=== PATIENT | female | born 1960 | race African-American/Black ===

== ENCOUNTER → 2016-12-13 | Outpatient (CLI) | payer OTHER ==
[~2016-12-13] MED LIST: LORTAB 5/500 TA1 TA1 PO
--- NOTE | ~2016-12-13 | MY29 ---
[facility] A Service of [facility] RADIOLOGY TEXT RESULTS PATIENT: SILVIO BRASHER LOCATION: [facility] : 56 UNIT #: [id number] AGE: [address]: Tawanna Dong MD SEX: F ORDER DR: [id number] [facility] [address] [place], [place] [address] [id number] O MR#: [id number] Acc #: [id number] NAME: SILVIO BRASHER : 1960 SEX: F STUDY DATE/TIME: 12/13/2016 11:02 UNIT: [facility] ROOM: STUDY DESCRIPTION: MY SUKHI SCREENING W/ CAD BILAT Attending Physician: Tawanna Dong M.D. Referring Physician: Mane Colón M.D. Ordering Physician: Tawanna Dong M.D. Primary Care Physician: Tawanna Dong M.D. MEDICAL IMAGING REPORT This report is preliminary unless electronic signature is present EXAM Digital screening mammogram 12/13/2016 HISTORY 56-year-old woman status post left lumpectomy 2004. Adjuvant radiation therapy. Family history of ovarian cancer. Annual screen. COMPARISON Mammograms date to 10/27/2009 with most recent 03/12/2013 FINDINGS Digital imaging of each breast was completed utilizing screening protocol. Review includes FDA-approved CAD device. Skin marker is only partially imaged on the left MLO projection due to its posterior third location. Breast parenchyma is mildly heterogeneous and slightly dominant in the left breast. I see no suspicious mass. There are no microcalcifications and no interval occurring architectural disturbance. IMPRESSION Negative mammogram. Stable post lumpectomy findings left breast. Annual screening recommended. Patients over the age of 40 are entered into a reminder system with target due date for the next mammogram. A result letter will also be sent to the patient. BIRADS: 1, negative. Dictated by... Adonay Martines M.D. THIS IS AN ELECTRONICALLY VERIFIED REPORT [facility] A Service of [facility] RADIOLOGY TEXT RESULTS PATIENT: SILVIO BRASHER LOCATION: [facility] : 56 UNIT #: [id number] AGE: [address]: Tawanna Dong MD SEX: F ORDER DR: Adonay Martines M.D. at 12/13/2016 3:17 PM SARAHY/blanca TD: 12/13/2016 13:49 JOB #: [id number] MEDICAL IMAGING REPORT Page 1 of 1 COPY
== END | disposition home or self-care (01) ==
LOC: CWCC 10:27
DX: Z12.31 Encounter for screening mammogram for malignant neoplasm of breast (principal); Z80.41 Family history of malignant neoplasm of ovary; Z85.3 Personal history of malignant neoplasm of breast; Z98.890 Other specified postprocedural states; M05.9 Rheumatoid arthritis with rheumatoid factor, unspecified; M25.562 Pain in left knee; M25.561 Pain in right knee; M25.542 Pain in joints of left hand; M25.541 Pain in joints of right hand; F10.20 Alcohol dependence, uncomplicated; F14.21 Cocaine dependence, in remission; Z72.0 Tobacco use; Z79.1 Long term (current) use of non-steroidal anti-inflammatories (NSAID); Z90.710 Acquired absence of both cervix and uterus; Z88.1 Allergy status to other antibiotic agents
CPT/HCPCS: G0202

== ENCOUNTER → 2017-03-13 | Outpatient (CLI) | payer OTHER ==
--- NOTE | ~2017-03-13 | US128 ---
[id number] [facility] [address] [place], [place] [address] [id number] O MR#: [id number] [facility] #: [id number] NAME: SILVIO BRASHER : 1960 SEX: F STUDY DATE/TIME: 03/13/2017 11:13 UNIT: [facility] ROOM: STUDY DESCRIPTION: Thyroid Attending Physician: Mani Richardson M.D. Referring Physician: Mani Richardson M.D. Ordering Physician: Mani Richardson M.D. Primary Care Physician: Tawanna Dong M.D. MEDICAL IMAGING REPORT This report is preliminary unless electronic signature is present EXAM Ultrasound of the thyroid gland. HISTORY This patient has a history of goiter. Patient reports difficulty swallowing for 2 months, and abnormal labs. She has had visual enlargement of her neck for 15 years. TECHNIQUE Merlos-scale and color Doppler sonographic images were obtained through the patient's thyroid gland. FINDINGS The thyroid gland is enlarged right lobe measures 4.9 x 6.5 x 4.9 cm, left lobe measures 4.4 x 6.1 x 3.8 cm. Isthmus measures about 1.3 cm. Multiple thyroid nodules are identified. Within the superior pole of the right lobe of the thyroid gland, there is a mildly hypoechoic nodule measuring 1.6 x 1.5 x 1.1 cm. A second cvt-ci-vfsqovkrit nodule is seen within the mid portion of the right lobe of the thyroid gland measuring 0.8 x 0.9 as 0.7 cm. A small hypoechoic nodule, is seen more inferiorly measuring 1.0 x 0.9 x 0.7 cm. The diagnostic sales specialist measures a very heterogeneous nodule within the inferior pole the right lobe the thyroid gland measuring 2.6 x 2.7 x 2.7 cm. I am uncertain if this is one discrete nodule or an area of heterogeneity with several clustered nodules. Heterogeneous nodule is seen within the superior pole of the left lobe of the thyroid gland. The diagnostic sales specialist also measures an additional potential nodule overlying the isthmus which measures about 2.7 x 1.9 x 1.0 cm. The patient actually on the prior study appeared to have 2 nodules in this area and I am wondering if perhaps that is what is being measured today. IMPRESSION 1. Enlarged and very heterogeneous thyroid gland with multiple nodules as noted above. Four of these could meet size criteria for percutaneous sampling. Two of these, one within the inferior pole of the right lobe of the thyroid gland, and the other straddling the isthmus have somewhat ill-defined borders and potentially could reflect a combination of nodules. Given the appearance of a multinodular goiter and the number of nodules present, I would suggest further evaluation with thyroid scintigraphy to evaluate for most appropriate FNA targets or very short-term sonographic follow up could also be considered. Dictated by... Hope Navarro M.D. THIS IS AN ELECTRONICALLY VERIFIED REPORT Hope Navarro M.D. at 03/14/2017 4:45 PM JORDAN/laura TD: 03/13/2017 20:29 JOB #: [id number] MEDICAL IMAGING REPORT Page 1 of 1 COPY
--- NOTE | ~2017-03-13 | BD1 ---
[facility] A Service of [facility] RADIOLOGY TEXT RESULTS PATIENT: SILVIO BRASHER LOCATION: [facility] : 56 UNIT #: [id number] AGE: [address]: Mani Richardson MD SEX: F ORDER DR: [id number] [facility] [address] [place], [place] [address] [id number] O MR#: [id number] Acc #: [id number] NAME: SILVIO BRASHER : 1960 SEX: F STUDY DATE/TIME: 03/13/2017 11:34 UNIT: [facility] ROOM: STUDY DESCRIPTION: BD Dexa Bone Dens 1+ Site Attending Physician: Mani Richardson M.D. Referring Physician: Mani Richardson M.D. Ordering Physician: Mani Richardson M.D. Primary Care Physician: Tawanna Dong M.D. MEDICAL IMAGING REPORT This report is preliminary unless electronic signature is present EXAM DEXA scan. HISTORY 56-year-old female, postmenopausal, screening for osteoporosis. Additional risk factors include steroid use. Patient has also had multiple fractures. FINDINGS Bone density was assessed utilizing Hologic bone densitometer. Bone density within the left femoral neck was calculated at 0.777 g/cm2 with a T-score -1.2. Total bone density in the lumbar spine was calculated at 0.930 g/cm2 with a T-score -2.0. IMPRESSION Total bone density within the left femoral neck and within the lumbar spine is between 1 and 2.5 standard deviations below the mean and is compatible with the World Health Organization classification for osteopenia. Dictated by... Jami Thomas M.D. THIS IS AN ELECTRONICALLY VERIFIED REPORT Jami Thomas M.D. at 03/14/2017 4:46 PM Sushma TD: 03/13/2017 17:26 JOB #: [id number] MEDICAL IMAGING REPORT Page 1 of 1 COPY
== END | disposition home or self-care (01) ==
LOC: CWCC 10:58 → CGUS 13:30
DX: Z13.820 Encounter for screening for osteoporosis (principal); E04.9 Nontoxic goiter, unspecified; E55.9 Vitamin D deficiency, unspecified; E04.2 Nontoxic multinodular goiter; Z78.0 Asymptomatic menopausal state
CPT/HCPCS: 76536; 77080